=== PATIENT | male | born 1965 | race Asian ===

== ENCOUNTER 2021-11-14 10:54 | Emergency (ER) | payer OTHER ==
[~2021-11-14] VITALS: Ht 185.4 cm; Wt 113.4 kg
[2021-11-14 11:31] VITALS: BP 154/94; TEMP 98
== END 2021-11-14 11:33 | disposition home or self-care (01) ==
LOC: ED 10:54
DX: N48.1 Balanitis (principal); W50.3XXA Accidental bite by another person, initial encounter; Y92.89 Other specified places as the place of occurrence of the external cause
CPT/HCPCS: 81000; 99282